=== PATIENT | female | born 1945 | race Caucasian/White ===

== ENCOUNTER 2016-11-11 15:57 | Emergency (ER) | payer MEDICARE ==
[2016-11-11 16:12] VITALS: BP 150/76; RESP 16; TEMP 98; O2SAT 100
[2016-11-11 17:29] LABS: BASO # 0.1 K/uL (0.0-0.2); EOS # 0.1 K/uL (0.0-0.7); EOS % 1.1 % (0.0-4.0); HEMATOCRIT 44.2 % (34.0-47.0); LYMPH # 2.6 K/uL (1.0-4.3); MEAN CELL VOLUME 92.3 fl (81.0-99.0); MEAN CORPUSCULAR HEMOGLOBIN 30.1 pg (27.0-31.0); MEAN CORPUSCULAR HGB CONC 32.6 g/dL (33.0-37.0); MEAN PLATELET VOLUME 7.7 fl (7.2-11.7); MONO # 0.9 K/uL (0.0-0.8); MONO % 7.9 % (0.0-10.0); NEUT # 7.5 K/uL (1.8-7.0); RED CELL DISTRIBUTION WIDTH 13.8 % (11.5-14.5); WHITE BLOOD COUNT 11.2 K/uL (4.8-10.8)
--- NOTE | 2016-11-11 17:35 | ED PDOC ---
HPI: General Adult Time Seen by Provider: 11/11/16 16:36 Chief Complaint (Nursing): Shortness Of Breath Chief Complaint (Provider): Dizziness History Per: Patient History/Exam Limitations: no limitations Onset/Duration Of Symptoms: Days (x2-3) Have you had recent travel within the past 21 days to any of the following countries: [place], [place], [place] or [place]?: No Current Symptoms Are (Timing): Still Present Additional Complaint(s): 71 year old female presents to ED with complaints of weakness x2-3 days and has a past medical history of osteoporosis. Patient describes feeling as if she " has the flu". (-) fever, (+) decreased appetite, chills, chest pain, palpitations, headahe, dizziness, malaise, fatigue, SOB, chest pain, and mild nausea. Notes that her chest pain and palpitations have been ongiong for years. Notes that today she had trouble getting out of a chair due to weakness, and that there is an increase of her baseline dizziness. States that she skipped her appointment with top lift nailer yesterday, and forced herself to go today. Notes that the attending doctor there believed the patient should go to ED for further evaluation. PCP: Dr. Shaffer Employment Legal Assistant: Dr. Rubio Past Medical History Reviewed: Historical Data, Nursing Documentation, Vital Signs Vital Signs: Last Vital Signs Temp 98.0 F 11/11/16 16:03 Pulse 87 11/11/16 20:14 Resp 16 11/11/16 16:03 BP 150/76 11/11/16 16:03 Pulse Ox 100 11/11/16 20:14 - Medical History PMH: Asthma, Emphysema, Osteoporosis - Surgical History Surgical History: Cholecystectomy - Family History Family History: States: No Known Family Hx - Social History Current smoker - smoking cessation education provided: No Ex-Smoker (has not smoked in the last 12 months): No Alcohol: None Drugs: Denies - Home Medications Home Medications: Ambulatory Orders Medication Instructions Recorded Docusate [Colace] 100 mg PO BID PRN 11/11/16 Ergocalciferol (Vitamin D2) 50,000 unit PO QWK 11/11/16 [Vitamin D2] oxyCODONE [oxyCODONE Immediate 30 mg PO Q6H PRN 11/11/16 Release Tab] - Allergies Allergies/Adverse Reactions: Allergies Allergy/AdvReac Type Severity Reaction Status Date / Time No Known Allergies Allergy Verified 11/11/16 16:09 Review of Systems ROS Statement: Except As Marked, All Systems Reviewed And Found Negative Constitutional: Positive for: Chills, Malaise, Other (Fatigue). Negative for: Fever Cardiovascular: Positive for: Chest Pain, Palpitations Respiratory: Positive for: Shortness of Breath Gastrointestinal: Positive for: Nausea (mild), Other (Decreased appetite) Neurological: Positive for: Weakness, Headache, Dizziness Physical Exam - Reviewed Nursing Documentation Reviewed: Yes Vital Signs Reviewed: Yes - Physical Exam Appears: Positive for: Non-toxic, No Acute Distress (Tired appearing) Head Exam: Positive for: ATRAUMATIC Skin: Positive for: Normal Color (Afebrile), Warm, Dry Eye Exam: Positive for: EOMI, PERRL ENT: Negative for: Pharyngeal Erythema, Tonsillar Exudate Neck: Positive for: Painless ROM, Trachea Midline Cardiovascular/Chest: Positive for: Regular Rate, Rhythm. Negative for: Murmur Respiratory: Positive for: Normal Breath Sounds. Negative for: Respiratory Distress Gastrointestinal/Abdominal: Positive for: Soft. Negative for: Tenderness, Mass , Distended, Guarding Back: Positive for: Normal Inspection. Negative for: Vertebral Tenderness Extremity: Positive for: Normal ROM. Negative for: Deformity Lymphatic: Negative for: Adenopathy Neurologic/Psych: Positive for: Alert, Oriented. Negative for: Motor/Sensory Deficits - Laboratory Results Result Diagrams: 11/11/16 17:20 11/11/16 17:20 - ECG ECG: Positive for: Interpreted By Me, Viewed By Me ECG Rhythm: Positive for: Normal ST Segment, Sinus Rhythm, Nonspecific Changes ( Nonspecific T wave abnormality) Rate: 87 O2 Sat by Pulse Oximetry: 100 (RA) Pulse Ox Interpretation: Normal Medical Decision Making Medical Decision Makin Initial impression: weakness Initial plan: * CT HEAD * EKG * BNP * Labs * Magnesium * Phosphorus * TSH * Trop I * PTT/PT * BCx * UA Accession No. : [id number] Patient Name / ID : SANTI BLACK / [id number] Exam Date : 11/11/2016 17:13:49 ( Approved ) Study Comment : Sex / Age : F / 71Y Creator : Susan Montez MD Dictator : Susan Montez MD Visual Merchandising Assistant : Quiller Machine Fixer : Susan Montez MD Approver2 : Report Date : 11/11/2016 17:32:04 My Comment : PROCEDURE: CT HEAD WITHOUT CONTRAST. HISTORY: dizziness COMPARISON: None available. TECHNIQUE: Axial computed tomography images were obtained through the head/brain without intravenous contrast. Radiation dose: Total exam DLP = 975.33 mGy-cm. This CT exam was performed using one or more of the following dose reduction techniques: Automated exposure control, adjustment of the mA and/or kV according to patient size, and/or use of iterative reconstruction technique. FINDINGS: HEMORRHAGE: No intracranial hemorrhage. BRAIN: No mass effect or edema. The gillette-white matter differentiation appears intact. Please note that MRI with diffusion imaging is more sensitive in the detection of acute ischemic event. VENTRICLES: No hydrocephalus. CALVARIUM: Unremarkable. PARANASAL SINUSES: Unremarkable as visualized. No significant inflammatory changes. MASTOID AIR CELLS: Unremarkable as visualized. No inflammatory changes. OTHER FINDINGS: None. IMPRESSION: No acute intracranial pathology identified. Labs unremarkable. Pt stable. Eager to go home. Advised f/u Dr Shaffer [facility]. Scribe Attestation: Documented by Melissa Maya acting as a scribe for Tari Linares MD. Scribe Attestation: All medical record entries made by the Scribe were at my direction and personally dictated by me. I have reviewed the chart and agree that the record accurately reflects my personal performance of the history, physical exam, medical decision making, and the department course for this patient. I have also personally directed, reviewed, and agree with the discharge instructions and disposition. Disposition - Clinical Impression Clinical Impression: Weakness - Disposition Referrals: Froy Shaffer MD [Staff Provider] - (SEE DR SHAFFER TOMORROW FOR FURTHER EVALUATION) Disposition: Routine/Home Disposition Time: 19:00 Condition: GOOD Instructions: Weakness (ED)
[2016-11-11 17:41] LABS: ALB/GLOB RATIO 1.5 (1.0-2.1); ALKALINE PHOSPHATASE 93 U/L (38-126); ALT/SGPT 30 U/L (9-52); AST/SGOT 33 U/L (14-36); BILIRUBIN,TOTAL 0.6 mg/dl (0.2-1.3); BLOOD UREA NITROGEN 15 mg/dl (7-17); CALCIUM 9.3 mg/dL (8.4-10.2); CARBON DIOXIDE 29 mmol/L (22-30); CHLORIDE 101 mmol/L (98-107); GFR AFRICAN-AMERICAN > 60; GLUCOSE,RANDOM 100 mg/dL (65-105); MAGNESIUM 2.2 MG/DL (1.6-2.3); PHOSPHOROUS 3.5 mg/dl (2.5-4.5); POTASSIUM 4.7 MMOL/L (3.6-5.0); SODIUM 141 mmol/l (132-148); TOTAL PROTEIN 7.7 G/DL (6.3-8.2)
[2016-11-11 17:48] VITALS: PULSE 87
[2016-11-11 18:18] LABS: THYROID STIMULATING HORMONE 0.99 mIU/ML (0.46-4.68)
[2016-11-11 18:25] LABS: PARTIAL THROMBOPLASTIN TIME 29.5 SECONDS (23.3-32.5)
[2016-11-11 18:52] LABS: RBC URINE 7 /hpf (0-3); URINE BACTERIA FEW (<OCC); URINE BILIRUBIN NEGATIVE (NEGATIVE); URINE BLOOD NEGATIVE (NEGATIVE); URINE COLOR YELLOW (YELLOW); URINE GLUCOSE (UA) NEG (Normal); URINE KETONE NEGATIVE (NEGATIVE); URINE LEUKOCYTE ESTERASE NEG Leu/uL (Negative); URINE PROTEIN NEGATIVE (NEGATIVE); URINE UROBILINOGEN 0.2-1.0 mg/dL (0.2-1.0); WBC URINE 1 /hpf (0-5)
--- NOTE | 2016-11-12 12:29 | CARD ---
APPROVED REPORT EKG Measurement Heart [id number] <Conclusion> Normal sinus rhythm Possible Left atrial enlargement Left axis deviation Nonspecific T wave abnormality Abnormal ECG
== END 2016-11-11 20:15 | disposition home or self-care (01) ==
LOC: H.ER 15:57
DX: R42 Dizziness and giddiness (principal); R53.1 Weakness; J43.9 Emphysema, unspecified; Z87.891 Personal history of nicotine dependence; R51 Headache